=== PATIENT | male | born 1940 | race Caucasian/White ===

== ENCOUNTER 2021-07-03 11:51 | Outpatient (CLI) | payer MEDICARE | END 2021-07-03 11:52 | disposition home or self-care (01) | LOC: CSHRAD 11:51 | PROVIDERS: ATTEND Family Medicine | DX: M25.552 Pain in left hip (principal); M16.12 Unilateral primary osteoarthritis, left hip ==

== ENCOUNTER 2023-01-17 12:12 | Emergency (ER) | payer MEDICARE | END 2023-01-17 14:50 | disposition home or self-care (01) | LOC: CSHERS 12:12 | DX: S05.11XA Contusion of eyeball and orbital tissues, right eye, initial encounter (principal); M75.121 Complete rotator cuff tear or rupture of right shoulder, not specified as traumatic; I10 Essential (primary) hypertension; Z87.891 Personal history of nicotine dependence; W01.0XXA Fall on same level from slipping, tripping and stumbling without subsequent striking against object, initial encounter | CPT/HCPCS: 70450; 70486; 72125 ==

== ENCOUNTER 2024-10-28 12:04 | Outpatient (CLI) | payer MEDICARE | END 2024-10-28 12:05 | disposition home or self-care (01) | LOC: CSHULT 12:04 | PROVIDERS: ATTEND Family Medicine | DX: R97.20 Elevated prostate specific antigen [PSA] (principal); N32.9 Bladder disorder, unspecified | CPT/HCPCS: 76770 ==